=== PATIENT | female | born 1955 | race Native Hawaiian/Other Pacific Islander ===

== ENCOUNTER 2016-10-10 19:22 | Emergency (ER) | payer BC ==
[~2016-10-10] VITALS: Ht 157.5 cm; Wt 70.3 kg
[2016-10-10] MEDS ORDERED: NAPROXEN 500 MG TABLET PO ONE (20:15)
[2016-10-10] MEDS ORDERED: NAPROXEN 500 MG TABLET ONE (20:23)
--- NOTE | 2016-10-10 21:57 | NUR ---
Patient discharged to home in stable conditon. Written and verbal after care instructions given. Patient verbalizes understanding of instructions. Ambulated from ER with stable gait. All belongings with patient. patient will be driven home by significant other. No further complaint of pain noted.
[2016-10-10 21:59] VITALS: BP 137/74
== END 2016-10-10 22:01 | disposition home or self-care (01) ==
LOC: ER 19:23
DX: S13.4XXA Sprain of ligaments of cervical spine, initial encounter (principal); I10 Essential (primary) hypertension; Z88.0 Allergy status to penicillin; V49.9XXA Car occupant (driver) (passenger) injured in unspecified traffic accident, initial encounter; Y93.89 Activity, other specified; Y92.413 State road as the place of occurrence of the external cause; Y99.9 Unspecified external cause status
CPT/HCPCS: 70450; 72125; 73030; 93005; 99284; A4663